=== PATIENT | female | born 1955 | race American Indian/Alaskan Native ===

== ENCOUNTER 2018-11-30 09:50 | Emergency (ER) | payer MEDICAID, OTHER ==
[2018-11-30 10:00] VITALS: BP 163/77
--- NOTE | 2018-11-30 10:55 | XRay Report ---
RIGHT HAND, 2 views: History: Pain, swelling. The bony architecture is intact. Bony alignment is normal. No soft tissue abnormalities are seen. The joint spaces appear preserved. IMPRESSION: Right hand within normal limits.
--- NOTE | 2018-11-30 11:47 | Emergency Department Report ---
HPI - General Chief Complaint: Extremity Problem,Nontraumatic Time Seen by Provider: 11/30/18 11:20 - HPI HPI: This is a 63-year-old female who presents to ED complaining of right in pain and swelling 1-2 days. Patient's issues are recall any injuries or trauma to the head. Patient states that she's been told that she tosses around when she sleeps by her grandchildren. Patient states she may have hit it on the bed or some sort when sleeping. She states the pain is localized to her hand. She denies any laceration or cuts to the hand. ED Past Medical Hx - Past Medical History Previous Medical History?: Yes Hx Hypertension: Yes Hx Diabetes: Yes - Surgical History Past Surgical History?: Yes Hx Cholecystectomy: Yes - Social History Smoking Status: Never Smoker Substance Use Type: None - Medications Home Medications: Home Medications Medication Instructions Recorded Confirmed Last Taken Type Naproxen [Naprosyn] 500 mg PO BID #30 tablet 11/30/18 Unknown Rx ED Review of Systems ROS: Stated complaint: (R) HAND/ARM PAIN Other details as noted in HPI Comment: All other systems reviewed and negative Musculoskeletal: arthralgia, myalgia. denies: joint swelling Physical Exam - Physical Exam Vital Signs: Vital Signs 11/30/18 09:57 Temperature 97.4 F L Pulse Rate 92 H Respiratory 16 Rate Blood Pressure 163/77 O2 Sat by Pulse 100 Oximetry Physical Exam: GENERAL: Alert and oriented x3, no apparent distress, Normal Gait, atraumatic. HEAD: Head is normocephalic and a-traumatic. LUNGS: Symetrical with respiration, No wheezing, no rales or crackles, CTAB. HEART: S1, S2 present, regular rate and rhythm without murmur, no rubs, no gallops. Non tender to palpation EXTREMITIES/MUSCULOSKELETAL: No cyanosis, clubbing, rash, lesions or edema. Full ROM bilaterally. UE Pulses 2+ bilaterally. UE 5+ strength bilaterally, tenderness palpation of the fourth and fifth digit finger. Patient is able to make fist and extend and fingers. NEUROLOGIC: The patient is cooperative with no focal neurologic deficits. SKIN: Warm and dry, No lesions, No ulceration or induration present. ED Course Vital Signs 11/30/18 09:57 Temperature 97.4 F L Pulse Rate 92 H Respiratory 16 Rate Blood Pressure 163/77 O2 Sat by Pulse 100 Oximetry ED Medical Decision Making - Radiology Data Radiology results: report reviewed, image reviewed Ordering Physician: MARYSE TAVERAS MD Date of Service: 11/30/18 Procedure(s): XR hand 2V RT Accession Number(s): [id number] cc: ED MD DARCY Fluoro Time In Minutes: RIGHT HAND, 2 views: History: Pain, swelling. The bony architecture is intact. Bony alignment is normal. No soft tissue abnormalities are seen. The joint spaces appear preserved. IMPRESSION: Right hand within normal limits. Transcribed By: TTR Dictated By: SARWAT PEOPLES JR, MD Electronically Authenticated By: SARWAT PEOPLES JR, MD Signed Date/Time: 11/30/18 1053 Critical care attestation.: If time is entered above; I have spent that time in minutes in the direct care of this critically ill patient, excluding procedure time. ED Disposition Clinical Impression: Arthralgia of hand, right Disposition: [id number] TO HOME OR SELFCARE Is pt being admited?: No Does the pt Need Aspirin: No Condition: Stable Instructions: Hand Sprain (ED), Arthralgia (ED), Heat Pack Application (ED) Additional Instructions: Make sure to follow up with the primary care physician as discussed. Take all your medications as you've been prescribed. If you have any worsening symptoms or develop new symptoms please return to ED immediately. Prescriptions: Naproxen [Naprosyn] 500 mg PO BID #30 tablet Referrals: PRIMARY CAREMD [Primary Care Provider] - 3-5 Days [facility] [Outside] - 3-5 Days [facility] [Outside] - 3-5 Days Forms: Accompanied Note, Work/School Release Form(ED) Time of Disposition: 11:58
== END 2018-11-30 12:47 | disposition home or self-care (01) ==
LOC: ED 09:50
DX: M79.641 Pain in right hand (principal); I10 Essential (primary) hypertension; E11.9 Type 2 diabetes mellitus without complications